=== PATIENT | female | born 1985 | race Two or more races ===

== ENCOUNTER → 2024-03-04 | Outpatient (CLI) | payer BC, SELFPAY ==
--- NOTE | 2024-03-04 12:30 | XR_ITS ---
Examination: Breast ultrasound, unilateral, left complete Date and time of exam: March 04, 2024 1304 hours INDICATIONS: Left breast sonogram April 11, 2023 2:00 nodule 10 mm 2:00 nodule 6 mm 4:00 nodule 10 mm 9:00 nodule 6 mm (o'clock nodule 8 mm with breast biopsy marker Technique: Real-time mota scale ultrasonographic imaging performed left breast including all 4 quadrants as well as nipple retroareolar and axillary region. Findings: 2:00 oval mass 13 x 12 mm circumscribed 2:00 oval mass circumscribed 7 x 7 mm 4:00 oval mass circumscribed 10 x 8 mm 9:00 oval mass lobular margins 7 x 9 mm 11:00 oval mass with breast biopsy markers circumscribed 12 x 11 mm 11:00 irregular mass indistinct margins 10 x 9 x 8 mm, taller than wide IMPRESSION: BI-RADS Category 4: Suspicious for malignancy Suspicious nodule indistinct margins, taller than wide, 10 x 9 x 8 mm, biopsy of this nodule is needed to exclude breast carcinoma, this nodule is amenable to ultrasound-guided breast biopsy for diagnosis
--- NOTE | 2024-03-04 13:00 | XR_ITS ---
Examination: Screening digital mammography, bilateral Computer aided detection 3-D breast Tomosynthesis, bilateral Date and time of exam: March 04, 2024 1330 hours Comparison August 27, 2019 Indication: Screening Technique: Nonmagnified MLO, CC views of the breasts to been obtained, reconstructed from 3-D Tomosynthesis images. R2 computer aided detection program utilized for evaluation of suspicious masses and/or abnormal calcifications. 3-D Tomosynthesis images obtained. Findings: The breasts are heterogeneously dense, which may obscure small masses Breast biopsy markers 12:00 position left breast 14 mm focal asymmetry lower inner left breast Impression: BI-RADS Category 0: Incomplete: Need additional imaging evaluation 14 mm focal asymmetry lower inner left breast, recommend follow-up spot tomographic views of this asymmetry as well as left breast sonography to complete the workup
== END | disposition home or self-care (01) ==
LOC: CDIM 12:48
PROVIDERS: Referring Provider Physician Assistant Medical; Visit Provider Physician Assistant Medical
DX: Z12.31 Encounter for screening mammogram for malignant neoplasm of breast (principal); R92.8 Other abnormal and inconclusive findings on diagnostic imaging of breast; N64.89 Other specified disorders of breast; N63.21 Unspecified lump in the left breast, upper outer quadrant; N63.25 Unspecified lump in the left breast, overlapping quadrants; N63.22 Unspecified lump in the left breast, upper inner quadrant; N63.23 Unspecified lump in the left breast, lower outer quadrant
CPT/HCPCS: 76641; 77063; 77067

== ENCOUNTER → 2024-03-11 | Outpatient (CLI) | payer BC, SELFPAY ==
--- NOTE | 2024-03-11 10:30 | XR_ITS ---
Examination: Diagnostic digital mammography, unilateral, left Computer aided detection 3-D breast Tomosynthesis, unilateral Date and time of exam: March 11, 2024 1026 hours INDICATIONS: Mammogram March 04, 2024 14 mm focal asymmetry inner lower left breast Technique: Nonmagnified MLO, CC views of the left breast have been obtained, reconstructed from 3-D Tomosynthesis images. R2 computer aided detection program utilized for evaluation of suspicious masses and/or abnormal calcifications. 3-D Tomosynthesis images obtained. Findings: The breast is heterogeneously dense, which may obscure small masses Focal asymmetry remains in the inner left breast Please see the left breast sonogram report March 04, 2024 indicating BI-RADS 4 suspicious nodule 11:00 position left breast, taller than wide, indistinct margins Impression: BI-RADS category 4: Suspicious for malignancy Left breast sonogram today demonstrates BI-RADS 4 suspicious nodule left breast 11:00 position, biopsy of this nodule is needed to exclude breast carcinoma This nodule is amenable to ultrasound-guided breast biopsy for diagnosis
== END | disposition home or self-care (01) ==
LOC: CDIM 10:17
PROVIDERS: Referring Provider Physician Assistant Medical; Visit Provider Physician Assistant Medical
DX: R92.342 Mammographic extreme density, left breast (principal); N63.22 Unspecified lump in the left breast, upper inner quadrant
CPT/HCPCS: 77061; 77065; G0279

== ENCOUNTER → 2024-03-20 | Outpatient (CLI) | payer BC, SELFPAY ==
[2024-03-20 10:17] LABS: Alanine Aminotransferase 8 U/L (10-49); Albumin, Serum 4.8 gm/dL (3.5-5.0); Alkaline Phosphatase 66 U/L (46-116); Anion Gap 8 (7-16); Aspartate Amino Transferase 11 U/L (0-34); BUN/Creatinine Ratio 16 Ratio (12-20); Bilirubin,Total 0.5 mg/dL (0.3-1.2); Blood Urea Nitrogen 14 mg/dL (9-23); Calcium 9.5 mg/dL (8.3-10.6); Calcium (Corrected) 9.5 mg/dL (8.5-10.1); Carbon Dioxide 26.4 mMol/L (20.0-31.0); Chloride 107 mMol/L (98-107); Cholesterol 170 mg/dL (132-200); Creatinine (Component) 0.9 mg/dL (0.6-1.3); Free T4 (Free Thyroxine) 1.09 ng/dL (0.89-1.76); Globulin 2.4 gm/dL (2.3-3.5); Glucose 85 mg/dL (74-106); HDL Cholesterol 57 mg/dL (40-60); LDL Cholesterol,Calculated 86 mg/dL (0-130); Osmolality,Calculated 280 (275-295); Potassium 4.5 mMol/L (3.4-5.1); Sodium 141 mMol/L (136-145); Thyroid Stimulating Hormone 6.55 uIU/mL (0.55-4.78); Total Protein 7.2 gm/dL (5.7-8.2); Triglycerides 136 mg/dL (30-150); eGFR > 60 See Note
== END | disposition home or self-care (01) ==
LOC: COPL 08:54
PROVIDERS: PCP Family Medicine; Referring Provider Family Medicine; Visit Provider Family Medicine
DX: E03.2 Hypothyroidism due to medicaments and other exogenous substances (principal); E78.1 Pure hyperglyceridemia; Z13.1 Encounter for screening for diabetes mellitus
CPT/HCPCS: 36415; 80053; 80061; 84439; 84443